=== PATIENT | male | born 1950 | race Caucasian/White ===

== ENCOUNTER → 2016-10-16 | Day surgery (SDC) | payer BC ==
[2016-10-11 12:50] VITALS: BMI 45.0
[~2016-10-16] VITALS: Ht 170.2 cm; Wt 131.8 kg
[~2016-10-16] MED LIST: ASPCH81X PO; ATOR-24 PO; ATROVENT NAE; CHOL200010 PO; HYZ/10015 PO; KETAMINE HCL INJ 50 MG/ML 10 ML VIAL ONE; KRIL1CAP3 PO; LEVO5TAB2 PO; LIDOCAINE HCL 2% 2 ML VIAL (20MG/ML) ONE; LOSA50TA36 PO; MIDAZOLAM HCL 1 MG/ML 2ML VIAL ONE; MISCCAP80 PO; MOME50SP5; MOME6000 NAE; MONT1TAB3 PO; OMEP40CA41 PO; PROPOFOL IV EMULSION 10 MG/ML 20 ML VIAL IV ONE; SODIUM CHLORIDE 0.9% 500ML 500 ML IV ONE
[2016-10-16 11:47] VITALS: Ht 170.2 cm; Wt 131.8 kg
[2016-10-16 11:48] VITALS: TEMP 36.9
--- NOTE | 2016-10-16 12:09 | Endo History and Physical ---
History & Physical Date of Service: October 16, 2016. Chief Complaint: REFLUX Referring Physician: DR. DANIEL FLOR History of Present Illness reflux Past Surgical History Hx Cardiac Surgery: No Hx Internal Defibrillator: No Hx Pacemaker: No Hx Abdominal Surgery: Yes (KAREN) Hx of Implantable Prosthesis: No Hx Post-Op Nausea and Vomiting: No Hx Cancer Surgery: Yes (BCC EXCISION ON FACE) Hx Thoracic Surgery: No Hx Orthopedic: No Hx Urinary Tract Surgery: No Family History None Social History Smoking Status: Former Smoker Hx Substance Use: No Hx Alcohol Use: Yes (2 DRINKS DAILY) Allergies Coded Allergies: Sulfa Antibiotics (Verified Allergy, Unknown, RASH, 10/16/16) Current Medications Reported Home Medications Medications Dose Route/Sig Max Daily Dose Days Date Category Probiotic (Probiotic Product) 1 Cap Cap PO 10/16/16 Reported Vitamin D (Cholecalciferol) 2,000 Unit Cap 1 Cap PO QAM 10/11/16 Reported Krill Oil 1 Cap Cap 1 Cap PO QAM 10/11/16 Reported Aspirin Chewable (Aspirin) 81 Mg Chew 81 Mg PO HS 10/11/16 Reported Prilosec (Omeprazole) 40 Mg Cap 40 Mg PO BID 10/11/16 Reported [Atrovent] 1 [place] ANA TID 10/11/16 Reported Lipitor (Atorvastatin Calcium) 40 Mg Tab 40 Mg PO HS 10/11/16 Reported Losartan Potassium/Hydroc (Losartan Potassium & Hydrochlo) 1 Tab Tab 1 Tab PO QAM 90 10/11/16 Reported Xyzal (Levocetirizine Dihydrochloride) 5 Mg Tab 1 Tab PO HS 90 10/11/16 Reported Singulair (Montelukast Sodium) 10 Mg Tab 10 Mg PO HS 10/11/16 Reported Nasonex (Mometasone Furoate) [place] 1 [place] NA BID 08/19/10 Reported Vital Signs Weight (Kilograms): 131.82 Height (Feet): 5 Height (Inches): 7 Date Time Temp Pulse Resp B/P Pulse Ox O2 Delivery O2 Flow Rate FiO2 10/16/16 11:48 36.9 88 18 162/94 95 Room Air Physical Exam General Appearance: no apparent distress Respiratory/Chest: Auscultation: breath sounds normal Cardiovascular: Heart Auscultation: RRR Abdomen: Inspection & Palpation: soft Assessment and Plan Cough - EGD
--- NOTE | 2016-10-16 12:52 | GI REPORT ---
Procedure Date: 10/16/2016 12:03 PM Procedure: Upper GI endoscopy Indications: Chronic cough Medicines: See the Anesthesia note for documentation of the administered medications Complications: No immediate complications. Estimated Blood Loss: Estimated blood loss: none. Procedure: Pre-Anesthesia Assessment: - ASA Grade Assessment: III - A patient with severe systemic disease. After obtaining informed consent, the endoscope was passed under direct vision. Throughout the procedure, the patient's blood pressure, pulse, and oxygen saturations were monitored continuously. The scope was introduced through the mouth, and advanced to the second part of duodenum. The upper GI endoscopy was accomplished without difficulty. The patient tolerated the procedure well. Findings: The Z-line was irregular and was found 42 cm from the incisors. Biopsies were taken with a cold forceps for histology. The exam of the esophagus was otherwise normal. There was no endoscopic evidence of esophagtiis to support a diagnosis of LERD. Therer was mild patchy erythema in the antrum; otherwise the stomach and duodenum were normal. Impression: - Z-line irregular, 42 cm from the incisors. Biopsied. Otherwise unremarkable. Recommendation: - Await pathology results. - Discharge patient to home. Ed Perea M.D. Ed Perea MD 10/16/2016 12:52:05 PM This report has been signed electronically. Note Initiated On: 10/16/2016 12:03 PM I attest to the content of the Intraoperative Record and orders documented therein, exceptions below
--- NOTE | 2016-10-16 12:56 | Discharge Instructions ---
Endoscopy Patient Instructions Date / Procedure(s) Performed October 16, 2016. EGD Allergy Information Coded Allergies: Sulfa Antibiotics (Verified Allergy, Intermediate, RASH, 10/16/16) Discharge Date / Findings October 16, 2016. Irregular Z line. Provider Instructions Activity Restrictions - No exercising or heavy lifting for 24 hours. - Do not drink alcohol the day of the procedure. - Do not drive a car or operate machinery until the day after the procedure. - Do not make any important decisions or sign important papers in 24 hours after the procedure. Following Day: - Return to full activity which may include returning to work/school. Diet Start your diet with liquids and light foods (jello, soup, juice, toast). Then eat your usual diet if not nauseated. Treatment For Common After Affects For mild abdominal pain, bloating, or excessive gas: - Rest - Eat lightly - Lie on right side Follow up with ENT provider. Follow-Up Information Follow-up with DR. DANIEL FLOR as scheduled Anesthesia Information What You Should Know You have had a procedure that required some medicine to reduce anxiety and discomfort. This treatment is called moderate sedation. After receiving the treatment, you may be sleepy, but you will be able to breathe on your own. The effects of the treatment may last for several hours. Follow these instructions along with Activity/Diet recommendations noted above: * Do NOT do anything where dizziness or clumsiness would be dangerous. * Rest quietly at home today, then you can be up and about tomorrow. * Have a responsible person stay with you the rest of today. * You may have had an I.V. today. If so, you may take the dressing off later today. Recommendations Call your doctor if: * Trouble breathing * Continuous vomiting for more than 24 hours * Temperature above 101 degrees * Severe abdominal pain or bloating * Pain not relieved by pain medicine ordered * There is increased drainage or redness from any incision * A large amount of rectal bleeding greater than 2-3 tablespoons. (If you had a polyp/s removed or have hemorrhoids, a small amount of blood - from the rectum is to be expected.) * You have any unanswered questions or concerns. IN THE EVENT OF A SERIOUS EMERGENCY, GO TO THE NEAREST EMERGENCY ROOM Your discharge instructions were prepared by provider Ed Barbour. Patient Instructions Signature Page Jake Soriano Patient (or Guardian) Signature/Date: I have read and understand the instructions given to me by my caregivers. Caregiver/RN/Doctor Signature/Date: The above-named patient and/or guardian has received patient instructions on this date. + Original Patient Signature Page (only) stays with chart. Please make copy for patient.
[2016-10-16 13:00] VITALS: BP 157/84; PULSE 81; O2SAT 96
--- NOTE | 2016-10-16 14:22 | Anesthesiology Progress Note ---
Anesthesia Post Op Note Date & Time October 16, 2016 at 14:21 Vital Signs Pain Intensity: 0 Vital Signs Past 12 Hours Date Time Temp Pulse Resp B/P Pulse Ox O2 Delivery O2 Flow Rate FiO2 10/16/16 13:00 81 20 157/84 96 Room Air 10/16/16 12:45 82 18 154/76 96 Room Air 10/16/16 12:29 86 14 161/82 95 Room Air 10/16/16 11:48 36.9 88 18 162/94 95 Room Air Notes Mental Status: alert / awake / arousable, participated in evaluation Pt Amnestic to Procedure: Yes Nausea / Vomiting: adequately controlled Pain: adequately controlled Airway Patency, RR, SpO2: stable & adequate BP & HR: stable & adequate Hydration State: stable & adequate Anesthetic Complications: no major complications apparent
== END | disposition home or self-care (01) ==
LOC: C.GI 11:28
PROVIDERS: ATTEND Internal Medicine Gastroenterology
DX: R05 Cough (principal); K21.9 Gastro-esophageal reflux disease without esophagitis; K31.89 Other diseases of stomach and duodenum; K20.9 Esophagitis, unspecified; G47.33 Obstructive sleep apnea (adult) (pediatric); Z85.9 Personal history of malignant neoplasm, unspecified; Z88.2 Allergy status to sulfonamides; Z98.890 Other specified postprocedural states; Z79.82 Long term (current) use of aspirin; Z90.49 Acquired absence of other specified parts of digestive tract; Z90.89 Acquired absence of other organs; Z79.899 Other long term (current) drug therapy; Z68.42 Body mass index [BMI] 45.0-49.9, adult; E66.01 Morbid (severe) obesity due to excess calories

== ENCOUNTER → 2017-04-29 | Day surgery (SDC) | payer BC ==
[2017-04-24 09:15] VITALS: Ht 170.2 cm; Wt 131.8 kg
[~2017-04-29] VITALS: Ht 170.2 cm; Wt 131.8 kg
[~2017-04-29] MED LIST changes: -ASPCH81X PO; -LOSA50TA36 PO; -MIDAZOLAM HCL 1 MG/ML 2ML VIAL ONE; -MISCCAP80 PO; -MOME50SP5; -OMEP40CA41 PO; +ONDANSETRON INJ 2 MG/ML 2 ML VIAL IV PRN; -SODIUM CHLORIDE 0.9% 500ML 500 ML IV ONE
--- NOTE | 2017-04-29 09:23 | Endo History and Physical ---
History & Physical Date of Service: Apr 29, 2017. Chief Complaint: HX OF POLYPS Referring Physician: DR. FLOR History of Present Illness Patient presents for Colon polyp surveillance. The patient denies having any symptoms today. He did have a prior cholecystectomy but otherwise no prior surgical interventions. There is no family history of colorectal cancer. Past Surgical History Hx Cardiac Surgery: No Hx Internal Defibrillator: No Hx Pacemaker: No Hx Abdominal Surgery: Yes (KAREN) Hx of Implantable Prosthesis: No Hx Post-Op Nausea and Vomiting: No Hx Cancer Surgery: Yes (BCC EXCISION ON FACE) Hx Thoracic Surgery: No Hx Orthopedic: No Hx Urinary Tract Surgery: No Family History None Social History Smoking Status: Former Smoker Hx Substance Use: No Hx Alcohol Use: Yes (2 DRINKS DAILY) Allergies Coded Allergies: Sulfa Antibiotics (Verified Allergy, Intermediate, RASH, 04/24/17) Current Medications Reported Home Medications Medications Dose Route/Sig Max Daily Dose Days Date Category Mometasone Furoate (Mometasone Furoate (Nasal)) 50 Mcg/Act Spr 1 [place] ANA BID 04/24/17 Reported Hyzaar 25MG/100MG (HCTZ/Losartan Potassium) Tab 1 Tab PO QAM 04/24/17 Reported Vitamin D (Cholecalciferol) 2,000 Unit Cap 1 Cap PO QAM 10/11/16 Reported Krill Oil 1 Cap Cap 1 Cap PO QAM 10/11/16 Reported [Atrovent] 1 [place] ANA TID 10/11/16 Reported Lipitor (Atorvastatin Calcium) 40 Mg Tab 40 Mg PO HS 10/11/16 Reported Xyzal (Levocetirizine Dihydrochloride) 5 Mg Tab 1 Tab PO HS 90 10/11/16 Reported Singulair (Montelukast Sodium) 10 Mg Tab 10 Mg PO HS 10/11/16 Reported Vital Signs Weight (Kilograms): 131.82 Height (Feet): 5 Height (Inches): 7 Date Time Temp Pulse Resp B/P (MAP) Pulse Ox O2 Delivery O2 Flow Rate FiO2 04/29/17 09:07 36.4 83 16 161/88 (112) 94 Room Air Physical Exam General Appearance: no apparent distress Respiratory/Chest: Auscultation: breath sounds normal Cardiovascular: Heart Auscultation: RRR Abdomen: Inspection & Palpation: soft Assessment and Plan Patient for colon polyp surveillance today. We discussed the risks of the procedure to bleeding, infection, perforation and missed colon polyps. Plan Colonoscopy today
--- NOTE | 2017-04-29 09:50 | Discharge Instructions ---
Endoscopy Patient Instructions Date / Procedure(s) Performed Apr 29, 2017. Colonoscopy Allergy Information Coded Allergies: Sulfa Antibiotics (Verified Allergy, Intermediate, RASH, 04/24/17) Discharge Date / Findings Apr 29, 2017. Hemorrhoids Diverticulosis 2 colonic polyps Medication Instructions Reported Home Medications Medications Dose Route/Sig Max Daily Dose Days Date Category Mometasone Furoate (Mometasone Furoate (Nasal)) 50 Mcg/Act Spr 1 [place] ANA BID 04/24/17 Reported Hyzaar 25MG/100MG (HCTZ/Losartan Potassium) Tab 1 Tab PO QAM 04/24/17 Reported Vitamin D (Cholecalciferol) 2,000 Unit Cap 1 Cap PO QAM 10/11/16 Reported Krill Oil 1 Cap Cap 1 Cap PO QAM 10/11/16 Reported [Atrovent] 1 [place] ANA TID 10/11/16 Reported Lipitor (Atorvastatin Calcium) 40 Mg Tab 40 Mg PO HS 10/11/16 Reported Xyzal (Levocetirizine Dihydrochloride) 5 Mg Tab 1 Tab PO HS 90 10/11/16 Reported Singulair (Montelukast Sodium) 10 Mg Tab 10 Mg PO HS 10/11/16 Reported Provider Instructions Activity Restrictions - No exercising or heavy lifting for 24 hours. - Do not drink alcohol the day of the procedure. - Do not drive a car or operate machinery until the day after the procedure. - Do not make any important decisions or sign important papers in 24 hours after the procedure. Following Day: - Return to full activity which may include returning to work/school. Diet Start your diet with liquids and light foods (jello, soup, juice, toast). Then eat your usual diet if not nauseated. Treatment For Common After Affects For mild abdominal pain, bloating, or excessive gas: - Rest - Eat lightly - Lie on right side Follow-Up Information Follow-up with DR. FLOR as scheduled Repeat colonoscopy in 3-5 years depending on pathology Begin a fiber supplement, one to 2 fiber gummies per day Anesthesia Information What You Should Know You have had a procedure that required some medicine to reduce anxiety and discomfort. This treatment is called moderate sedation. After receiving the treatment, you may be sleepy, but you will be able to breathe on your own. The effects of the treatment may last for several hours. Follow these instructions along with Activity/Diet recommendations noted above: * Do NOT do anything where dizziness or clumsiness would be dangerous. * Rest quietly at home today, then you can be up and about tomorrow. * Have a responsible person stay with you the rest of today. * You may have had an I.V. today. If so, you may take the dressing off later today. Recommendations Call your doctor if: * Trouble breathing * Continuous vomiting for more than 24 hours * Temperature above 101 degrees * Severe abdominal pain or bloating * Pain not relieved by pain medicine ordered * There is increased drainage or redness from any incision * A large amount of rectal bleeding greater than 2-3 tablespoons. (If you had a polyp/s removed or have hemorrhoids, a small amount of blood - from the rectum is to be expected.) * You have any unanswered questions or concerns. IN THE EVENT OF A SERIOUS EMERGENCY, GO TO THE NEAREST EMERGENCY ROOM Your discharge instructions were prepared by provider Candelario Fuchs. Patient Instructions Signature Page Jake Soriano Patient (or Guardian) Signature/Date: I have read and understand the instructions given to me by my caregivers. Caregiver/RN/Doctor Signature/Date: The above-named patient and/or guardian has received patient instructions on this date. + Original Patient Signature Page (only) stays with chart. Please make copy for patient.
--- NOTE | 2017-04-29 09:54 | GI REPORT ---
Procedure Date: 04/29/2017 9:26 AM Procedure: Colonoscopy Indications: High risk colon cancer surveillance: Personal history of colonic polyps Medicines: Monitored Anesthesia Care Complications: No immediate complications. Estimated blood loss: Minimal. Estimated Blood Loss: Estimated blood loss was minimal. Procedure: Pre-Anesthesia Assessment: - Prior to the procedure, a History and Physical was performed, and patient medications, allergies and sensitivities were reviewed. The patient's tolerance of previous anesthesia was reviewed. - The risks and benefits of the procedure and the sedation options and risks were discussed with the patient. All questions were answered and informed consent was obtained. - Patient identification and proposed procedure were verified prior to the procedure by the physician, the nurse and the intravenous therapy nurse. The procedure was verified in the procedure room. - Pre-procedure physical examination revealed no contraindications to sedation. - ASA Grade Assessment: III - A patient with severe systemic disease. - After reviewing the risks and benefits, the patient was deemed in satisfactory condition to undergo the procedure. - The anesthesia plan was to use monitored anesthesia care (MAC). - Immediately prior to administration of medications, the patient was re-assessed for adequacy to receive sedatives. - The heart rate, respiratory rate, oxygen saturations, blood pressure, adequacy of pulmonary ventilation, and response to care were monitored throughout the procedure. - The physical status of the patient was re-assessed after the procedure. After I obtained informed consent, the scope was passed under direct vision. Throughout the procedure, the patient's blood pressure, pulse, and oxygen saturations were monitored continuously. The scope was introduced through the anus and advanced to the terminal ileum. The colonoscopy was performed without difficulty. The patient tolerated the procedure well. The quality of the bowel preparation was good. Findings: The digital rectal exam findings include non-thrombosed external hemorrhoids. Pertinent negatives include normal sphincter tone. The terminal ileum appeared normal. Multiple small and large-mouthed diverticula were found in the entire colon. Two semi-sessile polyps were found in the transverse colon. The polyps were 5 to 6 mm in size. These polyps were removed with a cold snare. Resection and retrieval were complete. Internal hemorrhoids were found during retroflexion. The hemorrhoids were mild. The exam was otherwise without abnormality. Impression: - Non-thrombosed external hemorrhoids found on digital rectal exam. - The examined portion of the ileum was normal. - Moderate diverticulosis in the entire examined colon. - Two 5 to 6 mm polyps in the transverse colon, removed with a cold snare. Resected and retrieved. - Internal hemorrhoids. - The examination was otherwise normal. Recommendation: - Discharge patient to home (ambulatory). - Advance diet as tolerated today. - Await pathology results. - Repeat colonoscopy in 3 - 5 years for surveillance based on pathology results. - Use fiber, for example Citrucel, Fibercon, Konsyl or Metamucil. Candelario Fuchs D.O. Candelario Fuchs, DO 04/29/2017 9:53:54 AM This report has been signed electronically. Note Initiated On: 04/29/2017 9:26 AM I attest to the content of the Intraoperative Record and orders documented therein, exceptions below
--- NOTE | 2017-04-29 10:02 | Anesthesiology Progress Note ---
Anesthesia Post Op Note Date & Time Apr 29, 2017 at 10:02 Vital Signs Pain Intensity: 0 Vital Signs Past 12 Hours Date Time Temp Pulse Resp B/P (MAP) Pulse Ox O2 Delivery O2 Flow Rate FiO2 04/29/17 09:53 83 16 161/88 (112) 96 Room Air 04/29/17 09:07 36.4 83 16 161/88 (112) 94 Room Air Notes Mental Status: alert / awake / arousable, participated in evaluation Pt Amnestic to Procedure: Yes Nausea / Vomiting: adequately controlled Pain: adequately controlled Airway Patency, RR, SpO2: stable & adequate BP & HR: stable & adequate Hydration State: stable & adequate Anesthetic Complications: no major complications apparent
[2017-04-29 10:23] VITALS: BP 175/92; PULSE 77; O2SAT 100
== END | disposition home or self-care (01) ==
LOC: C.GI 08:29
PROVIDERS: ATTEND Internal Medicine Gastroenterology
DX: Z12.11 Encounter for screening for malignant neoplasm of colon (principal); Z86.010 Personal history of colon polyps; D12.3 Benign neoplasm of transverse colon; K57.30 Diverticulosis of large intestine without perforation or abscess without bleeding; K64.8 Other hemorrhoids; K64.4 Residual hemorrhoidal skin tags; Z87.891 Personal history of nicotine dependence; Z79.899 Other long term (current) drug therapy